=== PATIENT | female | born 1945 | race Caucasian/White ===

== ENCOUNTER 2017-02-16 18:18 | Inpatient (IN) | payer MEDICARE ==
[~2017-02-16 18:18] MED LIST: CITRACAL + D M1 EAC1 PO; FISH OIL OMEGA1 EAC3 PO; FLONASE ALLERG9.9 ML
[2017-02-16 20:44] LABS: BASO % 0.1 % (0-2); EOS % 7.4 % (0-7); EOSINOPHIL ABSOLUTE COUNT 1.1 tho/cmm (0.0-0.7); HGB-HEMOGLOBIN 12.1 gm/dl (12.0-15.5); IMMATURE GRANULOCYTES ABSOLUTE 0.04 tho/cmm (0-0.03); IMMATURE GRANULOCYTES PERCENT 0.3 % (0-0.3); LYMPH ABSOLUTE COUNT 2.4 tho/cmm (0.8-4.5); MCH (MEAN CORPUSCULAR HGB) 30.7 pg (28.0-32.0); MCHC MEAN CORPUSCULAR HGB CONC 32.7 % (32.0-36.0); MCV (MEAN CELL VOLUME) 93.9 fl (82.0-96.0); MEAN PLATELET VOLUME 9.5 cmc (9.4-12.4); MONO % 7.2 % (0-12); NEUTROPHIL ABSOLUTE COUNT 9.7 tho/cmm (1.6-8.0); NEUTROPHIL-AUTOMATED 9.7 tho/cmm (1.6-8.0); PLATELET COUNT 290 tho/cmm (150-450); RED BLOOD COUNT 3.94 mil/cmm (4.00-5.20); RED CELL DISTRIBUTION WIDTH 15.4 % (12.4-16.4); WHITE BLOOD COUNT 14.3 tho/cmm (4.0-10.0)
[2017-02-16 20:53] LABS: ANION GAP 10 mmol/L (0-20); BLOOD UREA NITROGEN 24 mg/dl (6-24); CALCIUM 8.8 mg/dl (8.5-10.5); CARBON DIOXIDE-VENOUS 29 mmol/L (22-32); CHLORIDE 104 mmol/l (96-110); CREATININE 0.77 mg/dl (0.50-1.10); GLUCOSE 134 mg/dL (70-110); SODIUM 139 mmol/L (135-145); eGFR VALUE FOR BLACK 89 mL/Min
[2017-02-16] MEDS ORDERED: CELEBREX200 M1 PO (23:48)
[2017-02-16] MEDS ORDERED: VITAMIN C1000 M2 PO (23:53)
[2017-02-16] MEDS ORDERED: CENTRUM COMPLE1 EAC1 PO (23:54)
[2017-02-16] MEDS ORDERED: [UNRECOGNIZED DRUG - OTHER] PO (23:55)
[2017-02-16] MEDS ORDERED: PENTOXIFYLLINE400 M2 PO (23:55)
[2017-02-16] MEDS ORDERED: VASCULERA630 MG PO (23:56)
[2017-02-16] MEDS ORDERED: XARELTO1 EACH PO (23:57)
[2017-02-17 06:33] LABS: BASO % 0.2 % (0-2); EOSINOPHIL ABSOLUTE COUNT 2.1 tho/cmm (0.0-0.7); HCT-HEMATOCRIT 36.8 % (34.0-49.0); IMMATURE GRANULOCYTES ABSOLUTE 0.04 tho/cmm (0-0.03); IMMATURE GRANULOCYTES PERCENT 0.3 % (0-0.3); LYMPH % 19.7 % (20-45); LYMPH ABSOLUTE COUNT 2.7 tho/cmm (0.8-4.5); MCH (MEAN CORPUSCULAR HGB) 30.6 pg (28.0-32.0); MCHC MEAN CORPUSCULAR HGB CONC 32.6 % (32.0-36.0); MCV (MEAN CELL VOLUME) 93.9 fl (82.0-96.0); MEAN PLATELET VOLUME 9.6 cmc (9.4-12.4); MONO % 8.8 % (0-12); MONOCYTE ABSOLUTE COUNT 1.2 tho/cmm (0.0-1.2); NEUTROPHIL ABSOLUTE COUNT 7.5 tho/cmm (1.6-8.0); NEUTROPHIL-AUTOMATED 7.5 tho/cmm (1.6-8.0); NEUTROPHILS % 55.3 % (40-80); PLATELET COUNT 299 tho/cmm (150-450); RED BLOOD COUNT 3.92 mil/cmm (4.00-5.20); RED CELL DISTRIBUTION WIDTH 15.6 % (12.4-16.4); WHITE BLOOD COUNT 13.6 tho/cmm (4.0-10.0)
[2017-02-17 06:37] LABS: EOS % 15.7 % (0-7); INR 1.1 INR (0.9-1.1); PROTHROMBIN TIME 12.4 SECONDS (9.0-13.6)
[2017-02-17 06:43] LABS: ANION GAP 12 mmol/L (0-20); BLOOD UREA NITROGEN 22 mg/dl (6-24); CALCIUM 8.5 mg/dl (8.5-10.5); CARBON DIOXIDE-VENOUS 28 mmol/L (22-32); CHLORIDE 105 mmol/l (96-110); CREATININE 0.79 mg/dl (0.50-1.10); GLUCOSE 95 mg/dL (70-110); POTASSIUM 3.9 mmol/L (3.7-5.1); SODIUM 141 mmol/L (135-145); eGFR VALUE FOR BLACK 86 mL/Min
[2017-02-17 06:54] LABS: TSH-THYROID STIMULATING HORM. 3.36 uIU/ml (0.40-3.80)
[2017-02-18 07:16] LABS: BASO % 0.1 % (0-2); EOS % 0.5 % (0-7); HCT-HEMATOCRIT 35.2 % (34.0-49.0); HGB-HEMOGLOBIN 11.6 gm/dl (12.0-15.5); IMMATURE GRANULOCYTES ABSOLUTE 0.02 tho/cmm (0-0.03); IMMATURE GRANULOCYTES PERCENT 0.2 % (0-0.3); LYMPH % 15.6 % (20-45); LYMPH ABSOLUTE COUNT 1.4 tho/cmm (0.8-4.5); MCH (MEAN CORPUSCULAR HGB) 30.5 pg (28.0-32.0); MCV (MEAN CELL VOLUME) 92.6 fl (82.0-96.0); MEAN PLATELET VOLUME 9.3 cmc (9.4-12.4); MONO % 7.2 % (0-12); MONOCYTE ABSOLUTE COUNT 0.6 tho/cmm (0.0-1.2); NEUTROPHIL ABSOLUTE COUNT 6.6 tho/cmm (1.6-8.0); NEUTROPHIL-AUTOMATED 6.6 tho/cmm (1.6-8.0); NEUTROPHILS % 76.4 % (40-80); PLATELET COUNT 272 tho/cmm (150-450); RED CELL DISTRIBUTION WIDTH 15.1 % (12.4-16.4); WHITE BLOOD COUNT 8.6 tho/cmm (4.0-10.0)
[2017-02-18 07:30] LABS: ANION GAP 11 mmol/L (0-20); BLOOD UREA NITROGEN 17 mg/dl (6-24); CALCIUM 8.2 mg/dl (8.5-10.5); CARBON DIOXIDE-VENOUS 27 mmol/L (22-32); CHLORIDE 104 mmol/l (96-110); CREATININE 0.67 mg/dl (0.50-1.10); GLUCOSE 103 mg/dL (70-110); MAGNESIUM 2.1 mg/dl (1.3-2.6); PHOSPHOROUS 3.3 mg/dl (2.5-4.9); SODIUM 138 mmol/L (135-145); eGFR VALUE FOR BLACK >90 mL/Min
[2017-02-20 06:11] LABS: HGB-HEMOGLOBIN 12.3 gm/dl (12.0-15.5); PLATELET COUNT 309 tho/cmm (150-450)
[2017-02-22 06:02] LABS: HGB-HEMOGLOBIN 12.7 gm/dl (12.0-15.5); PLATELET COUNT 282 tho/cmm (150-450)
[2017-02-22 06:19] LABS: CREATININE 0.68 mg/dl (0.50-1.10); eGFR VALUE FOR BLACK >90 mL/Min
[2017-02-22] MEDS ORDERED: PERCOCET 5-3251 EACH PO (15:54)
[2017-02-22] MEDS ORDERED: PREDNISONE5 M1 PO (16:33)
[2017-02-22] MEDS ORDERED: XARELTO20 M1 PO (16:37)
[2017-02-22] MEDS ORDERED: KEFLEX500 M4 PO (16:38)
[2017-03-21] MEDS ORDERED: LEVAQUIN750 M1 PO (16:25)
[2017-03-21] MEDS ORDERED: NORCO 5-325 TA1 EACH PO (16:26)
[2017-05-11] MEDS ORDERED: KEFLEX500 M4 PO (11:39)
[2017-06-07] MEDS ORDERED: CIPRO500 M2 PO (08:31)
[2017-06-27] MEDS ORDERED: HYDROCODON-ACE1 EA16 PO (15:03)
== END 2017-02-22 17:15 | DRG 264 ==
LOC: BURN 18:18
PROVIDERS: Registered Nurse; Surgery; ADMIT Surgery
PROC: 0KBV0ZZ Excision of Right Foot Muscle, Open Approach (ICD-10-PCS; principal; 2017-02-17)
PROC: 0HRMXK3 Replacement of Right Foot Skin with Nonautologous Tissue Substitute, Full Thickness, External Approach (ICD-10-PCS; 2017-02-17)
PROC: 0HRKXK3 Replacement of Right Lower Leg Skin with Nonautologous Tissue Substitute, Full Thickness, External Approach (ICD-10-PCS; 2017-02-17)
PROC: 0HRMXK3 Replacement of Right Foot Skin with Nonautologous Tissue Substitute, Full Thickness, External Approach (ICD-10-PCS; 2017-02-21)
PROC: 0HRKXK3 Replacement of Right Lower Leg Skin with Nonautologous Tissue Substitute, Full Thickness, External Approach (ICD-10-PCS; 2017-02-21)
PROC: 0JBQ0ZZ Excision of Right Foot Subcutaneous Tissue and Fascia, Open Approach (ICD-10-PCS; 2017-02-21)
PROC: 0JBN0ZZ Excision of Right Lower Leg Subcutaneous Tissue and Fascia, Open Approach (ICD-10-PCS; 2017-02-21)
DX: I83.218 Varicose veins of right lower extremity with both ulcer of other part of lower extremity and inflammation (principal); L03.116 Cellulitis of left lower limb; L97.913 Non-pressure chronic ulcer of unspecified part of right lower leg with necrosis of muscle; I48.91 Unspecified atrial fibrillation; I73.9 Peripheral vascular disease, unspecified; M19.90 Unspecified osteoarthritis, unspecified site; Z79.01 Long term (current) use of anticoagulants; E78.5 Hyperlipidemia, unspecified
CPT/HCPCS: J0171; J1580; J1650; J2270; J2543; J3010; J3370; J7050; J7512; Q4100; Q4104

== ENCOUNTER 2017-03-22 | Inpatient (IN) | payer MEDICARE ==
[~2017-03-22] MED LIST changes: +CELEBREX200 M1 PO; +CENTRUM COMPLE1 EAC1 PO; +KEFLEX500 M4 PO; +LEVAQUIN750 M1 PO; +NORCO 5-325 TA1 EACH PO; +PENTOXIFYLLINE400 M2 PO; +PERCOCET 5-3251 EACH PO; +PREDNISONE5 M1 PO; +VASCULERA630 MG PO; +VITAMIN C1000 M2 PO; +XARELTO1 EACH PO; +XARELTO20 M1 PO; +[UNRECOGNIZED DRUG - OTHER] PO
[2017-03-25] MEDS ORDERED: PERCOCET 5-3251 EACH PO (16:30)
[2017-03-25] MEDS ORDERED: COLACE100 M1 PO (16:30)
[2017-03-25] MEDS ORDERED: TOPROL XL25 M1 PO (16:31)
[2017-05-11] MEDS ORDERED: KEFLEX500 M4 PO (11:39)
[2017-06-07] MEDS ORDERED: CIPRO500 M2 PO (08:31)
[2017-06-27] MEDS ORDERED: HYDROCODON-ACE1 EA16 PO (15:03)
== END 2017-03-25 17:35 | disposition home health service (06) | DRG 904 ==
DX: T86.821 Skin graft (allograft) (autograft) failure (principal); L03.115 Cellulitis of right lower limb; L97.819 Non-pressure chronic ulcer of other part of right lower leg with unspecified severity; I83.018 Varicose veins of right lower extremity with ulcer other part of lower leg; I48.0 Paroxysmal atrial fibrillation; I87.2 Venous insufficiency (chronic) (peripheral); R63.4 Abnormal weight loss; Z68.24 Body mass index [BMI] 24.0-24.9, adult; Z79.01 Long term (current) use of anticoagulants; I73.9 Peripheral vascular disease, unspecified; M19.90 Unspecified osteoarthritis, unspecified site; Z86.718 Personal history of other venous thrombosis and embolism

== ENCOUNTER 2017-04-07 09:59 | Inpatient (IN) | payer MEDICARE ==
[~2017-04-07 09:59] MED LIST changes: +COLACE100 M1 PO; +TOPROL XL25 M1 PO
[2017-04-11] MEDS ORDERED: LEVAQUIN750 M1 PO (12:27)
[2017-05-11] MEDS ORDERED: KEFLEX500 M4 PO (11:39)
[2017-06-07] MEDS ORDERED: CIPRO500 M2 PO (08:31)
[2017-06-27] MEDS ORDERED: HYDROCODON-ACE1 EA16 PO (15:03)
== END 2017-04-11 13:44 | DRG 264 ==
LOC: SRG 09:59 → SHSC 10:03 → PACU 12:57 → BURN 14:46
PROVIDERS: ADMIT Surgery
PROC: 0JBN0ZZ Excision of Right Lower Leg Subcutaneous Tissue and Fascia, Open Approach (ICD-10-PCS; principal; 2017-04-07)
PROC: 0HRKXK3 Replacement of Right Lower Leg Skin with Nonautologous Tissue Substitute, Full Thickness, External Approach (ICD-10-PCS; 2017-04-07)
PROC: 0JBQ0ZZ Excision of Right Foot Subcutaneous Tissue and Fascia, Open Approach (ICD-10-PCS; 2017-04-07)
PROC: 0HRMXK3 Replacement of Right Foot Skin with Nonautologous Tissue Substitute, Full Thickness, External Approach (ICD-10-PCS; 2017-04-07)
DX: I87.2 Venous insufficiency (chronic) (peripheral) (principal); L97.319 Non-pressure chronic ulcer of right ankle with unspecified severity; L97.519 Non-pressure chronic ulcer of other part of right foot with unspecified severity; L97.819 Non-pressure chronic ulcer of other part of right lower leg with unspecified severity; I83.018 Varicose veins of right lower extremity with ulcer other part of lower leg; K21.9 Gastro-esophageal reflux disease without esophagitis
CPT/HCPCS: J0171; J1170; J1580; J1956; J2270; J2405; J3010; J3370; L4396; Q4104